=== PATIENT | female | born 1935 | race Caucasian/White ===

== ENCOUNTER 2016-09-17 21:18 | Observation (INO) ==
[2016-09-17 21:52] LABS: Basophils % 0.5 %; Eosinophils # 0.1 K/mcL (0.0-0.6); Hemoglobin 12.7 g/dL (11.5-15.4); Immature Granulocytes % 0.7 % (0-4); Lymphocytes # 0.8 K/mcL (0.6-4.6); Lymphocytes % 14.5 %; Mean Corpuscular HGB Conc 32.6 g/dL (31.6-35.5); Mean Corpuscular Hemoglobin 33.8 pg (28.0-33.3); Mean Corpuscular Volume 103.7 fL (83.0-100.0); Mean Platelet Volume 8.2 fL (9.4-12.4); Monocytes # 0.6 K/mcL (0.0-1.3); Monocytes % 10.2 %; Platelet Count 222 K/mcL (140-400); Red Blood Count 3.76 M/mcL (3.82-4.97); Red Cell Distribution Width 13.6 % (11.5-14.5); Segmented Neutrophils % 72.1 %
[2016-09-17 21:58] LABS: Prothrombin Time 10.9 Seconds (9.4-12.1)
--- NOTE | 2016-09-17 21:58 | Emergency Department Note ---
Disposition Clinical Impression: UTI (urinary tract infection) Qualifiers: Urinary tract infection type: site unspecified Hematuria presence: without hematuria Qualified Code(s): N39.0 - Urinary tract infection, site not specified Falls Qualifiers: Encounter type: initial encounter Qualified Code(s): W19.XXXA - Unspecified fall, initial encounter Disposition: Home, Self-Care Condition: Good Referrals: Unassigned,Provider [Non-Partnered Physician] - Time of Disposition: 23:15 Syncope HPI - General Stated Complaint: fall, head lac Time Seen by Provider: 09/17/16 21:27 Source: patient, EMS Mode of arrival: EMS Limitations: altered mental status, age Nursing Notes Reviewed: Yes Vital Signs Reviewed: Yes - History of Present Illness HPI Narrative: 81-year-old female presents by EMS after a fall at home. She is a vague historian and is oriented only to person and place. Her history changes on repeat questioning and is unreliable. She notes that she has fallen a few times today perhaps 3 or 4 and notes that on the final episode she was in her bedroom and they will backwards striking her TV and apparently losing consciousness. She initially stated that she did not lose consciousness, but on repeat questioning she stated that she did not lose consciousness, but not until after she struck the TV. She denies any lightheadedness, shortness breath , chest pain, recent illness or other injury. She denies any blood thinner use. She is not able to verbalize her past medical history. She does note chronic neck and back pain which she states is at baseline. She denies any abdominal pain or extremity pain or injury. She denies any intoxicating substances or sedating medications tonight. - Related Data Allergies Allergy/AdvReac Type Severity Reaction Status Date / Time Unable to Assess Allergy Unverified 09/17/16 21:30 All systems ED: reviewed and negative except as stated. Past Medical History - Past Medical History Source: unable to obtain (Due to patient's altered mental status.) Physical Exam - Head- laceration to posterior scalp not visualized due to dried blood. No active bleeding. - Eye Eye exam: Present: normal appearance, PERRL, EOMI - ENT ENT exam: normal exam, normal oropharynx, mucous membranes moist - Neck Normal inspection. No stepoff/deformity. Diffuse tenderness in the right paraspinal muscles. - Chest Chest inspection: Present: normal inspection, symmetric chest wall rise - Respiratory Respiratory exam: Clear to auscultation bilaterally without wheezes rales or rhonchi Cardiovascular Cardiovascular exam: Present: regular rate, normal rhythm, normal heart sounds - Abdominal Exam Abdominal exam: Present: soft, Non-Tender. Absent: tenderness, distention, guarding, rebound, rigidity - Extremities Exam Extremities exam: Present: normal inspection, full ROM - Back Exam No stepoff or deformity. Diffuse mild tenderness which patient states is at baseline. - Neurological Exam Neurological exam: Present: alert, oriented to person and place only, CN II-XII intact. No focal motor/sensory deficit. - Psychiatric Psychiatric exam: Present: normal affect, normal mood - Skin Skin exam: Present: warm, dry, intact, normal color Course - Reevaluation(s) Reevaluation #1: Patient noted to have urinary tract infection on laboratory analysis. She was given Rocephin. She will be admitted to the hospitalist for urinary tract infection with multiple falls. Scalp laceration was repaired by myself without complications. 3 cm vertical laceration to midposterior scalp was irrigated with normal saline. Wound was explored adequately. It was repaired with 5 darrin. Pt tolerated the procedure well without complications. Bleeding was controlled. Pt given instructions for follow up and return precautions. Time: 23:14 Reevaluation #2: Accepted by Dr. Torrez. Time: 23:32 Vital Signs Temperature 98.1 F 09/17/16 21:20 Pulse Rate 89 09/17/16 21:20 Respiratory Rate 18 09/17/16 21:20 Blood Pressure 168/90 09/17/16 21:20 O2 Sat by Pulse Oximetry 95 09/17/16 21:20 Temperature 98.1 F 09/17/16 21:20 Pulse Rate 83 09/17/16 22:39 Respiratory Rate 16 09/17/16 22:39 Blood Pressure 133/99 09/17/16 22:39 O2 Sat by Pulse Oximetry 95 09/17/16 22:39 Oxygen Delivery Oxygen Delivery Room Air Syncope - Lab Data Result diagrams: 09/17/16 21:37 09/17/16 21:37 Lab Results 09/17/16 09/17/16 09/17/16 Range/Units 21:37 21:37 21:37 WBC 5.6 (4.3-11.1) K/mcL RBC 3.76 L (3.82-4.97) M/mcL Hgb 12.7 (11.5-15.4) g/dL Hct 39.0 (35.3-44.9) % MCV 103.7 H (83.0-100.0) fL MCH 33.8 H (28.0-33.3) pg MCHC 32.6 (31.6-35.5) g/dL RDW 13.6 (11.5-14.5) % Plt Count 222 (140-400) K/mcL MPV 8.2 L (9.4-12.4) fL Immature Gran % 0.7 (0-4) % Seg Neutrophils % 72.1 % Lymphocytes % 14.5 % Monocytes % 10.2 % Eosinophils % 2.0 % Basophils % 0.5 % Neutrophils # 4.0 (1.6-8.9) K/mcL Lymphocytes # 0.8 (0.6-4.6) K/mcL Monocytes # 0.6 (0.0-1.3) K/mcL Eosinophils # 0.1 (0.0-0.6) K/mcL Basophils # 0.0 (0.0-0.2) K/mcL PT 10.9 (9.4-12.1) Seconds INR 1.0 APTT 29.1 (26.0-36.0) Seconds Sodium 140 (136-145) mEq/L Potassium 3.7 (3.5-4.5) mEq/L Chloride 107 (98-109) mEq/L Carbon Dioxide 26 (19-29) mEq/L BUN 12 (7-20) mg/dL Creatinine 0.71 (0.57-1.11) mg/dL Est GFR ( Amer) > 60 (> 60) Est GFR (Non-Af Amer) > 60 (> 60) BUN/Creatinine Ratio 17 (6-26) Glucose 92 (70-99) mg/dL Calculated Osmolality 289 (280-300) Calcium 8.8 (8.6-10.8) mg/dL Creatine Kinase 386 H (29-168) Units/L Troponin I (0-0.03) ng/mL Urine Color (Yellow) Urine Clarity (Clear) Urine pH (5.0-8.0) pH Units Ur Specific [place] (1.010-1.025) Urine Protein (Neg-Trace) mg/dL Urine Glucose (UA) (Normal) mg/dL Urine Ketones (Negative) mg/dL Urine Blood (Negative) Urine Nitrite (Negative) Urine Bilirubin (Negative) Urine Urobilinogen (Normal) mg/dL Ur Leukocyte Esterase (Negative) Urine Microscopic RBC (0-3) per hpf Urine Microscopic WBC (0-3) per hpf Ur Squamous Epith Cells (None-Few) per lpf Ur Transition Epith Cell (None-Few) per hpf Urine Bacteria (None-Few) per hpf Hyaline Casts (None-Few) per lpf Urine Mucus (Few) Ur Culture Indicated? (NO) 09/17/16 09/17/16 Range/Units 21:37 22:24 WBC (4.3-11.1) K/mcL RBC (3.82-4.97) M/mcL Hgb (11.5-15.4) g/dL Hct (35.3-44.9) % MCV (83.0-100.0) fL MCH (28.0-33.3) pg MCHC (31.6-35.5) g/dL RDW (11.5-14.5) % Plt Count (140-400) K/mcL MPV (9.4-12.4) fL Immature Gran % (0-4) % Seg Neutrophils % % Lymphocytes % % Monocytes % % Eosinophils % % Basophils % % Neutrophils # (1.6-8.9) K/mcL Lymphocytes # (0.6-4.6) K/mcL Monocytes # (0.0-1.3) K/mcL Eosinophils # (0.0-0.6) K/mcL Basophils # (0.0-0.2) K/mcL PT (9.4-12.1) Seconds INR APTT (26.0-36.0) Seconds Sodium (136-145) mEq/L Potassium (3.5-4.5) mEq/L Chloride (98-109) mEq/L Carbon Dioxide (19-29) mEq/L BUN (7-20) mg/dL Creatinine (0.57-1.11) mg/dL Est GFR ( Amer) (> 60) Est GFR (Non-Af Amer) (> 60) BUN/Creatinine Ratio (6-26) Glucose (70-99) mg/dL Calculated Osmolality (280-300) Calcium (8.6-10.8) mg/dL Creatine Kinase (29-168) Units/L Troponin I 0.00 (0-0.03) ng/mL Urine Color Yellow (Yellow) Urine Clarity Cloudy A (Clear) Urine pH 5.0 (5.0-8.0) pH Units Ur Specific [place] 1.028 H (1.010-1.025) Urine Protein Negative (Neg-Trace) mg/dL Urine Glucose (UA) Normal (Normal) mg/dL Urine Ketones Negative (Negative) mg/dL Urine Blood Trace H (Negative) Urine Nitrite Positive A (Negative) Urine Bilirubin Negative (Negative) Urine Urobilinogen Normal (Normal) mg/dL Ur Leukocyte Esterase Moderate H (Negative) Urine Microscopic RBC 3-5 H (0-3) per hpf Urine Microscopic WBC 30-50 H (0-3) per hpf Ur Squamous Epith Cells Few (None-Few) per lpf Ur Transition Epith Cell Few (None-Few) per hpf Urine Bacteria Many H (None-Few) per hpf Hyaline Casts None Seen (None-Few) per lpf Urine Mucus Few (Few) Ur Culture Indicated? YES A (NO) - EKG Data EKG attestation: Yes I reviewed and interpreted this EKG. EKG results narrative: Normal sinus rhythm at 85 with left axis deviation. No ST elevation or depression. There is just diffuse nonspecific T-wave flattening. No significant change when compared with 12/03/2013. Attestation Statement - Attestation Attestation: I examined this patient and my medical decision-making was reviewed with the EXPEDITER/PA/Advanced Practice Nurse/Resident Physician. I agree with the documented findings, disposition and treatment plan as described except to the extent set forth below.
[2016-09-17 22:01] LABS: Activated Partial Thrombo Time 29.1 Seconds (26.0-36.0)
[2016-09-17] MEDS ORDERED: 0.9 % Sodium Chloride 500 ML IVC ONE (22:13)
[2016-09-17] MEDS ORDERED: Tdap (Boostrix) Vaccine 0.5 ML SYRINGE IM ONE (22:25)
[2016-09-17 22:47] LABS: Bilirubin,Urine Negative (Negative); Blood,Urine Trace (Negative); Clarity,Urine Cloudy (Clear); Color,Urine Yellow (Yellow); Glucose,Urine (UA) Normal (Normal); Ketones,Urine Negative (Negative); Leukocyte Esterase,Urine Moderate (Negative); Nitrite,Urine Positive (Negative); Protein,Urine Negative (Neg-Trace); Specific Gravity,Urine 1.028 (1.010-1.025); Urobilinogen,Urine Normal (Normal)
[2016-09-17 22:50] LABS: Creatine Kinase 386 Units/L (29-168)
[2016-09-17 22:52] LABS: BUN/Creatinine Ratio 17 (6-26); Blood Urea Nitrogen 12 mg/dL (7-20); Calcium 8.8 mg/dL (8.6-10.8); Carbon Dioxide 26 mEq/L (19-29); Chloride 107 mEq/L (98-109); Glucose 92 mg/dL (70-99); Osmolality,Calculated 289 (280-300); Potassium 3.7 mEq/L (3.5-4.5); Sodium 140 mEq/L (136-145); eGFR For African Americans > 60 (> 60); eGFR For Non-African Americans > 60 (> 60)
[2016-09-17 22:55] LABS: Squamous Epithelial Cell,Urine Few per lpf (None-Few)
[2016-09-17 22:56] LABS: Bacteria,Urine Many per hpf (None-Few); Transitional Epi Cells,Urine Few per hpf (None-Few); WBC,Urine 30-50 per hpf (0-3)
[2016-09-17 22:57] LABS: Hyaline Casts,Urine None Seen per lpf (None-Few); Mucus,Urine Few (Few)
[2016-09-17] MEDS ORDERED: 0.9 % Sodium Chloride 1,000 ML IVC SCH (23:45)
[2016-09-18] MEDS ORDERED: *HR* Morphine 2 MG/ML SYRINGE IVP ONE (02:48)
[2016-09-18] MEDS ORDERED: Naloxone 0.4 MG/ML INJ IVP PRN (03:25)
[2016-09-18] MEDS ORDERED: *HR* HYDROcodone/Acet 5/325 mg TABLET PO PRN (03:30)
[2016-09-18] MEDS ORDERED: Acetaminophen 325 MG TABLET PO PRN (03:30)
[2016-09-18] MEDS ORDERED: *HR* Morphine 2 MG/ML SYRINGE IVP PRN (03:30)
--- NOTE | 2016-09-18 03:38 | Internal Med History&Physical ---
Date of Encounter: 09/18/16 Time of Encounter: 03:36 Assessment and Plan (1) Falls Current visit: Yes Status: Acute Falls / Syncope: Possibly related to urinary tract infection/Orthostatic hypotension versus mechanical fall. Will treat urinary tract infection. Check orthostatic vitals. Obtain echocardiogram. Pt has limited movement at the right hip - will obtain X-ray, to exclude fracture / severe arthritis. PT/OT consult Qualifiers: Encounter type: initial encounter Qualified Code(s): W19.XXXA - Unspecified fall, initial encounter (2) UTI (urinary tract infection) Current visit: Yes Status: Acute Empirically started on ceftriaxone. Urine cultures pending. Titrate antibiotics based on the cultures. Qualifiers: Urinary tract infection type: site unspecified Hematuria presence: without hematuria Qualified Code(s): N39.0 - Urinary tract infection, site not specified (3) Rhabdomyolysis Current visit: Yes Status: Acute CK is elevated. Treat with IV fluids. Monitor CK levels Qualifiers: Rhabdomyolysis type: traumatic Encounter type: initial encounter Qualified Code(s): T79.6XXA - Traumatic ischemia of muscle, initial encounter (4) Macrocytosis Current visit: Yes Status: Acute Will check folate, vitamin B12 and TSH levels (5) Scalp laceration Current visit: Yes Status: Acute s/p repair / stapling in the ER. pain relief and supportive care. CT head is negative acute intracranial process. Qualifiers: Encounter type: initial encounter Qualified Code(s): S01.01XA - Laceration without foreign body of scalp, initial encounter (6) DVT prophylaxis Current visit: Yes Status: Acute SCDs Internal Medicine - H&P: HPI Chief complaint: Falls Admitted From: Emergency Dept Plans for Post Hospital Care: Home History of present illness: Ms. Ivan is a 81 year old female with past h/o migraines and prior falls. She presents to emergency department with history of fall at home. She reports that she lost balance and fell on her side striking the TV. She denies feeling dizzy , lightheaded or loosing consciousness. She could not get up by herself but could manage to reach the phone. She reports bleeding from the head, with headache and neck pain. She denies chest pain, palpitations, abdominal pain, dysuria, hematuria, or bowel problems, nausea, vomiting, fever, chills. She was evaluated in the emergency department and was noted to have abnormal urinalysis/urinary tract infection. She was given ceftriaxone and admitted to the hospitalist service for further workup and management. Past Med Surg Social Fam HX - Past Medical History Medical history: migraine, osteoporosis - Social History Smoking Status: Never smoker Alcohol use: none Drug use: none - Family History Mother Living Status: Age at : 66 Cause of : cardiac Father Living Status: Age at : 79 Internal Medicine - H&P: Meds Allergies Unable to Assess Allergy (Unverified 09/17/16 21:30) Pt is unable to remember what she is allergic to that caused her to stop breathing & go to [facility]. All Systems PM: A 10-system review of systems was performed and is negative for pertinent findings except as documented above in the HPI. - Constitutional Vitals: Temp Pulse Resp BP Pulse Ox 97.9 F 93 15 147/78 92 09/18/16 03:24 09/18/16 03:24 09/18/16 03:24 09/18/16 03:24 09/18/16 03:24 Exam: General: In mild distress at the time of my evaluation HEENT: Oral mucosa is moist. No conjunctival palor or scleral icterus. There is laceration with darirn on the occipital area Neck: No obvious neck swellings Lungs: Clear to auscultation Cardiac: Regular rate and rhythm. No significant murmurs Abdomen: Soft, non tender. Bowel sounds present Genitourinary: No drummond catheter Neurological: Alert and oriented. No gross localizing deficits Psych: Not aggressive or agitated Extremities: There is limitation of movements in the left lower extremity. No significant tenderness in the right knee or hip. No significant leg swelling Skin: No generalized rash Internal Med - H&P Results - Labs CBC & Chem 7: 09/17/16 21:37 09/17/16 21:37 - EKG Data -: EKG Interpreted by Myself EKG shows normal: sinus rhythm - EKG Data Prior EKG available for review: yes When compared to previous EKG: there are significant changes EKG comments: eviated questions in lead 1, aVL, V3 to V6. Poor R-wave progression in the anterior chest leads. 09/18/16 03:46 - Impressions ITS Impressions Cervical Spine CT 09/17/16 21:28 IMPRESSION: No acute abnormality of the cervical spine. D/ / Ray Fall MD / Ray Fall MD Interpreting Provider: Ray Fall MD Chest X-Ray 09/17/16 21:28 IMPRESSION: Negative portable chest. D/ / Iron Flores MD / Iron Flores MD Interpreting Provider: Iron Flores MD Head CT 09/17/16 21:28 IMPRESSION: 1. No acute intracranial abnormality. 2. Cerebral and cerebellar parenchymal volume loss with chronic microvascular white matter ischemic disease. D/ / 09/17/2016 22:27:31 Agustín Acevedo MD / laura Interpreting Provider: Agustín Acevedo MD
[2016-09-18] MEDS: Acetaminophen/Butalbital/CaffeineTABLET PO PRN ×3 (05:17→15:35)
[2016-09-18 05:33] LABS: Magnesium 1.7 mg/dL (1.6-2.6)
[2016-09-18 05:54] LABS: Thyroid Stimulating Hormone 1.356 mcIU/mL (0.350-4.840)
[2016-09-18 06:06] LABS: Folate 7.2 ng/mL (7.0-31.4)
[2016-09-18] MEDS: 0.9 % Sodium Chloride 1,000 ML IVC SCH ×2 (08:08→19:50)
--- NOTE | 2016-09-18 11:52 | Event Note ---
Date of Encounter: 09/18/16 Time of Encounter: 09:30 Patient seen and examined. On examination, patient resting supine in bed conversing with her [id number]. Patient complains of neck and back pain. She also complains of dysuria and suprapubic abdominal pain. She states she is eating well. Her pain appears uncontrolled and she is unable to move or roll over in bed without severe pain. Scalp laceration noted to her occiput, 5 darrin are intact and wound is well approximated. No drainage. CT of cervical spine negative. Chest x-ray negative. Head CT negative. Pelvic x- ray showed a possible abnormality in the right hip however dedicated right hip films were negative. CK elevation noted and is trending up, IV fluids added, will trend. Concern for possible rhabdo. Urinary tract infection noted, continue ceftriaxone and await culture. Nursing reports patient is intermittently confused, during my interaction with her, she was alert and oriented 3. patient services technician is also on board. OT and PT who recommended inpatient/swing bed however the patient vehemently refuses to leave her home. We will observe overnight, await urine culture, and trend her CK levels. Macrocytosis noted- TSH and folate normal B12 slightly low- will initiate supplementation. ITS Impressions Cervical Spine CT 09/17/16 21:28 IMPRESSION: No acute abnormality of the cervical spine. D/ / Ray Fall MD / Ray Fall MD Interpreting Provider: Ray Fall MD Chest X-Ray 09/17/16 21:28 IMPRESSION: Negative portable chest. D/ / Iron Flores MD / Iron Flores MD Interpreting Provider: Iron Flores MD Head CT 09/17/16 21:28 IMPRESSION: 1. No acute intracranial abnormality. 2. Cerebral and cerebellar parenchymal volume loss with chronic microvascular white matter ischemic disease. D/ / 09/17/2016 22:27:31 Agustín Acevedo MD / laura Interpreting Provider: Agustín Acevedo MD Pelvis X-Ray 09/18/16 03:27 IMPRESSION: Questionable nondisplaced right greater trochanter fracture. Dedicated hip radiographs may provide additional diagnostic information. D/ / Iron Flores MD / Iron Flores MD Interpreting Provider: Iron Flores MD Hip X-Ray 09/18/16 05:34 IMPRESSION: No definite acute fracture. D/ / Iron Flores MD / Iron Flores MD Interpreting Provider: Iron Flores MD Echocardiogram impressions: Normal LV systolic function, LVEF 65%. Mild left ventricular diastolic dysfunction. Normal right ventricular size and function. Mild aortic regurgitation. No evidence of pulmonary hypertension.
[2016-09-18] MEDS: Cyanocobalamin (B-12) 1,000 MCG TABLET PO SCH (12:29)
[2016-09-18] MEDS ORDERED: *HR* OxyCODONE Immed Rel 5 MG TABLET PO PRN (15:15)
[2016-09-18] MEDS ORDERED: Ketorolac 15 MG/ML VIAL IVP ONE (15:17)
[2016-09-18] MEDS ORDERED: Prochlorperazine 10 MG/2 ML VIAL IVP ONE (15:18)
--- NOTE | 2016-09-18 15:51 | Electrocardiograph Report ---
[address] [place], [place] [address] Test Date: 2016-09-17 Pat Name: Doreen Ivan Department: 102 Room: 3B21 Gender: F Outcome Analyst: Rosa Maria : 1935 Requested By: Ministerio Suggs Order Number: [id number] Reading MD: Michele Finley MD Measurements Intervals [place] Rate: 85 P: 16 [place]: 146 QRS: -21 QRSD: 93 T: 148 QT: 350 QTc: 392 Interpretive Statements SINUS RHYTHM BORDERLINE LEFT AXIS DEVIATION VOLTAGE CRITERIA FOR LVH LATERAL ISCHEMIA Electronically Signed On 09-18-2016 15:50:38 EDT by Michele Finley MD
[2016-09-19 03:51] LABS: Basophils % 0.4 %; Eosinophils # 0.1 K/mcL (0.0-0.6); Eosinophils % 2.6 %; Hematocrit 36.6 % (35.3-44.9); Hemoglobin 11.8 g/dL (11.5-15.4); Immature Granulocytes % 0.2 % (0-4); Lymphocytes # 0.8 K/mcL (0.6-4.6); Lymphocytes % 17.2 %; Mean Corpuscular HGB Conc 32.2 g/dL (31.6-35.5); Mean Corpuscular Hemoglobin 33.4 pg (28.0-33.3); Mean Corpuscular Volume 103.7 fL (83.0-100.0); Mean Platelet Volume 8.8 fL (9.4-12.4); Monocytes # 0.5 K/mcL (0.0-1.3); Monocytes % 10.9 %; Neutrophils # 3.2 K/mcL (1.6-8.9); Platelet Count 220 K/mcL (140-400); Red Blood Count 3.53 M/mcL (3.82-4.97); Red Cell Distribution Width 13.5 % (11.5-14.5); Segmented Neutrophils % 68.7 %
[2016-09-19 07:16] VITALS: BP 157/74
[2016-09-19] MEDS: Cyanocobalamin (B-12) 1,000 MCG TABLET PO SCH (09:07)
--- NOTE | 2016-09-19 10:42 | Discharge Summary ---
Date of Encounter: 09/19/16 Time of Encounter: 09:00 - Discharge Diagnosis (1) Falls Priority: Primary Status: Acute Comments: Likely multifactorial including mild dementia over the past several years that has an worsening. Also patient had urinary tract infection. She declined inpatient rehabilitation, sending home with home health Qualifiers: Encounter type: initial encounter Qualified Code(s): W19.XXXA - Unspecified fall, initial encounter (2) UTI (urinary tract infection) Priority: Primary Status: Acute Comments: Preliminary culture gram-negative rods. Treated with ceftriaxone while admitted , will send home on ciprofloxacin. We will call her tomorrow if urine sensitivities require change of antibiotics Qualifiers: Urinary tract infection type: site unspecified Hematuria presence: without hematuria Qualified Code(s): N39.0 - Urinary tract infection, site not specified (3) Dementia Priority: Secondary Status: Chronic Comments: At times during this admission, patient would become confused however for the most part she was alert and oriented 3. Multiple factors could be contributing including her rhabdo, urinary tract infection. Family states she has been getting increasingly more confused over the past several years. During my interactions with her during her 2 day admission, she was oriented 3 and able to make her own decisions. She refused inpatient placement, sending home with home health. (4) Weakness of right lower extremity Priority: Secondary Status: Chronic Comments: No new weaknesses. No upper extremity weaknesses or facial asymmetry (5) DVT prophylaxis Priority: Primary Status: Acute Comments: Observation patient (6) Rhabdomyolysis Priority: Primary Status: Acute Comments: Improved and CK trended down prior to discharge. Recommend follow-up outpatient Qualifiers: Rhabdomyolysis type: traumatic Encounter type: initial encounter Qualified Code(s): T79.6XXA - Traumatic ischemia of muscle, initial encounter (7) Macrocytosis Priority: Primary Status: Acute Comments: Stable, followed by outpatient (8) Scalp laceration Priority: Primary Status: Acute Comments: Well approximated, [address], follow up outpatient for staple removal Qualifiers: Encounter type: initial encounter Qualified Code(s): S01.01XA - Laceration without foreign body of scalp, initial encounter - Discharge Medications Prescriptions: Ciprofloxacin HCl [Cipro] 500 mg PO BID #14 tablet Cyanocobalamin (B-12) [Vitamin B12] 1,000 mcg PO DAILY #30 tablet Home Medications: Acetaminophen/Butalbital/Caffe [Fioricet] 1 tab PO Q6HR PRN 09/18/16 [History] Escitalopram [Lexapro] 20 mg PO DAILY 09/18/16 [History] LORazepam [Ativan] 1 mg PO TID 09/18/16 [History] Omeprazole [PriLOSEC] 40 mg PO DAILY 09/18/16 [History] Ciprofloxacin HCl [Cipro] 500 mg PO BID #14 tablet 09/19/16 [Rx] Cyanocobalamin (B-12) [Vitamin B12] 1,000 mcg PO DAILY #30 tablet 09/19/16 [Rx] Allergies/Adverse Reactions: Allergies Novacaine Allergy (Uncoded 09/18/16 10:34) Difficulty Breathing Procedures/tests Complete & Pending: Procedures Performed prior 72 hours Category Date Time Status EV echocardiogram Routine Y 09/18/16 03:34 Completed Date of admission: 09/17/16 23:40 Primary care physician: El Guerrero Jr, MD Consults: 09/18/16 00:51 Consult to Exhibits Curator [CONS] Routine Reason for SW Consult: lives home alone, frequent falls 09/18/16 03:27 PT [Consult to Physical Therapy] [CONS] Routine Comment: Evaluate, develop and implement POC Reason for Consult: recurrent falls 09/18/16 03:31 Consult to Occupational Therapy [CONS] Routine Comment: Evaluate, develop and implement POC Reason for Consult: Recurrent falls Discharging clinician: Jovana Brewster Anticipated date of discharge: 09/19/16 (refused ECF; home with HH) - Patient Status Disposition: Home Health Service Condition: Good Functional capacity at discharge: uses cane/walker Overall status at discharge: patient is progressing back to baseline - Discharge Instructions Follow Up With: El Guerrero Jr, MD [Primary Care Provider] - 09/25/16 10:00 am Forms: ED Satisfaction Letter Additional Instructions: Follow-up with primary care provider as scheduled - Diet and Activity Activity: ambulate only with your walker, as per physical therapy, increase activity as tolerated Diet: regular diet Hospital course: Ms. Ivan is a 81 year old female with past medical history of migraines and prior falls. Patient presented to the emergency department chief complaint fall at home. Patient states she lost her balance and fell on her side and struck the TV. She denies dizziness, lightheadedness, or loss of consciousness. Patient was not able to get up by herself but was able to reach the phone. Patient also had a scalp laceration to the occipital part. Patient also complained of headache and neck pain. She denied chest pain, palpitations , diarrhea, dysuria, bowel abnormalities, nausea or vomiting. Workup in the emergency department notable for urinary tract infection. CT of cervical spine unremarkable. Chest x-ray negative. Head CT negative for acute processes. Pelvic x-ray with possible hip fracture however dedicated hip x-rays were negative. Patient was admitted to the hospitalist service for further evaluation and management. Patient was admitted and observed over the course of 2 days and was treated with ceftriaxone. Preliminary culture report at time of discharge was gram-negative rods with sensitivities pending. She was sent home on ciprofloxacin and she will be called tomorrow if antibiotics need changed. She is aware that she would not receive a call if antibiotic is appropriate. Patient also had signs of rhabdo during this admission and prior to discharge after receiving IV fluids, her CK decreased and her generalized body aches have lessened. She was seen and evaluated by occupational and physical therapy both of her recommended inpatient/swing bed. Patient vehemently declined to go inpatient. At times during this admission, she would become confused but for the most part, patient was alert and oriented 3. Her family was concerned about her going home as she lives with herself. Social work was brought on board and there were several very lengthy discussions regarding her disposition. Ultimate decision was to send her home with home health services with additional services to be added on per the family. During my interactions with her over the course of 2 days, she was alert and oriented 3 and capable of making her own decisions. Echocardiogram unremarkable with ejection fraction of 65% and mild diastolic dysfunction. Patient euvolemic on examination on day of discharge. Her scalp laceration was well approximated with [address], follow up outpatient for staple removal. Also of note , patient had weakness noted to her right lower extremity which she states is chronic. She had no new focal neurological weakness is present during this admission. Macrocytosis was also noted on her blood work so TSH, folate, B12 all checked with B12 being slightly low and she was started on supplementation. She was discharged home with home health services in stable condition with close outpatient follow-up recommended. ITS Impressions Cervical Spine CT 09/17/16 21:28 IMPRESSION: No acute abnormality of the cervical spine. D/ / Ray Fall MD / Ray Fall MD Interpreting Provider: Ray Fall MD Chest X-Ray 09/17/16 21:28 IMPRESSION: Negative portable chest. D/ / Iron Flores MD / Iron Flores MD Interpreting Provider: Iron Flores MD Head CT 09/17/16 21:28 IMPRESSION: 1. No acute intracranial abnormality. 2. Cerebral and cerebellar parenchymal volume loss with chronic microvascular white matter ischemic disease. D/ / 09/17/2016 22:27:31 Agustín Acevedo MD / laura Interpreting Provider: Agustín Acevedo MD Pelvis X-Ray 09/18/16 03:27 IMPRESSION: Questionable nondisplaced right greater trochanter fracture. Dedicated hip radiographs may provide additional diagnostic information. D/ / Iron Flores MD / Iron Flores MD Interpreting Provider: Iron Flores MD Hip X-Ray 09/18/16 05:34 IMPRESSION: No definite acute fracture. D/ / Iron Flores MD / Iron Flores MD Interpreting Provider: Iron Flores MD Echocardiogram impressions: Normal LV systolic function, LVEF 65%. Mild left ventricular diastolic dysfunction. Normal right ventricular size and function. Mild aortic regurgitation. No evidence of pulmonary hypertension. - Time Spent with Patient Total time spent providing and/or coordinating discharge services: - Constitutional Vitals: Temp Pulse Resp BP Pulse Ox 98.0 F 77 14 157/74 93 09/19/16 07:15 09/19/16 07:15 09/19/16 07:15 09/19/16 07:15 09/19/16 07:15 General appearance: Present: A&O X 3, pleasant, no acute distress, answers questions appropriately - Head Head exam: Present: normocephalic. Absent: atraumatic (scalp lac- well approximated; [address]) - Eye Eye exam: Present: EOMI, PERRL, conjuntiva pink, sclera anicteric Pupils: Present: PERRL - Neck Neck exam general surgery: Present: supple, trachea midline. Absent: lymphadenopathy - Respiratory Respiratory exam: Present: CTAB. Absent: accessory muscle use, rales, respiratory distress, rhonchi, wheezes - Cardiovascular Cardiovascular exam: Present: RRR, +S1, +S2. Absent: diastolic murmur, gallop, rubs, systolic murmur - GI/Abdominal GI/Abdominal exam: Present: normal bowel sounds, soft, no peritoneal signs. Absent: distended, tenderness - Extremities Exam Extremities exam: Present: warm, radial pulses palpable and symetrical. Absent : calf tenderness, cyanotic, pedal edema - Neurological Exam Neurological exam: Present: alert, CN II-XII intact, oriented X3, no focal deficits, strengths equal and symetr throughout (protective signal repairer helper strength- RLE weak- chronic). Absent: pronater drift, facial droop, speech deficit - Skin Skin exam: Present: dry, intact, normal color, warm
--- NOTE | 2016-09-19 10:54 | Physician Discharge Referral ---
Home Health/Hosp Referral Info Transfer to: Home Health Attending Provider: Rufino Brewster CNP Provider in Charge Post Discharge: PCP - Diagnosis (1) Falls Priority: Primary Status: Acute (2) UTI (urinary tract infection) Priority: Primary Status: Acute (3) Dementia Priority: Secondary Status: Chronic (4) Weakness of right lower extremity Priority: Secondary Status: Chronic (5) DVT prophylaxis Priority: Primary Status: Acute (6) Rhabdomyolysis Priority: Primary Status: Acute (7) Macrocytosis Priority: Primary Status: Acute (8) Scalp laceration Priority: Primary Status: Acute - Respiratory Orders Smoking Cessation: Smoking cessation has been advised. For more information, call the [place] Tobacco Quit Line at 9-628-UNLG-NOW. - Diet/Nutrition Diet/Nutrition Orders: Regular - Activity Activity Orders: Ambulate (per PT), Walker - Services Needed Following services are medically necessary services: Nursing, Home Health Aide, Physical Therapy, Occupational Therapy - Transfer Medications Prescriptions: Ciprofloxacin HCl [Cipro] 500 mg PO BID #14 tablet Cyanocobalamin (B-12) [Vitamin B12] 1,000 mcg PO DAILY #30 tablet Home Medications: Acetaminophen/Butalbital/Caffe [Fioricet] 1 tab PO Q6HR PRN 09/18/16 [History] Escitalopram [Lexapro] 20 mg PO DAILY 09/18/16 [History] LORazepam [Ativan] 1 mg PO TID 09/18/16 [History] Omeprazole [PriLOSEC] 40 mg PO DAILY 09/18/16 [History] Ciprofloxacin HCl [Cipro] 500 mg PO BID #14 tablet 09/19/16 [Rx] Cyanocobalamin (B-12) [Vitamin B12] 1,000 mcg PO DAILY #30 tablet 09/19/16 [Rx] Allergies/Adverse Reactions: Allergies Novacaine Allergy (Uncoded 09/18/16 10:34) Difficulty Breathing Certification: Further, I certify that my clinical findings support that this patient is homebound (i.e. absences from home require considerable and taxing effort and are for medical reasons or mandaeism services or infrequently or short duration when for other reasons) because: Homebound Reason: Patient requires assistance of a person or device to safely leave home, Leaving home requires considerable and taxing effort due to condition, Altered mental status requiring supervision when leaving home Attestation: My signature below is to certify that this patient is under my care and that I, or nurse practitioner, or a physician's environmental emergencies assistant working with me, has a face-to -face encounter with this patient.
== END 2016-09-19 11:13 | disposition home health service (06) ==
LOC: 3BNU 21:18 → EMEROO 21:18 → 3BNU 09-18 00:12
PROVIDERS: ADMIT Internal Medicine Sleep Medicine; ATTEND Nurse Practitioner Family

== ENCOUNTER 2017-03-15 20:28 | Inpatient (IN) ==
[2017-03-15] MEDS ORDERED: 0.9 % Sodium Chloride 1,000 ML IVC ONE (22:09)
--- NOTE | 2017-03-15 22:19 | Emergency Department Note ---
Disposition Clinical Impression: Concussion without loss of consciousness Qualifiers: Encounter type: initial encounter Qualified Code(s): S06.0X0A - Concussion without loss of consciousness, initial encounter UTI (urinary tract infection) Qualifiers: Urinary tract infection type: site unspecified Hematuria presence: without hematuria Qualified Code(s): N39.0 - Urinary tract infection, site not specified Falls Qualifiers: Encounter type: initial encounter Qualified Code(s): W19.XXXA - Unspecified fall, initial encounter Disposition: Admitted As Inpatient Condition: Fair Referrals: El Guerrero Jr, MD [Primary Care Provider] - Forms: ED Satisfaction Letter Fall HPI - General Chief Complaint: ED Fall Stated Complaint: falls Time Seen by Provider: 03/15/17 20:47 Source: patient, EMS Limitations: altered mental status Nursing Notes Reviewed: Yes Vital Signs Reviewed: Yes - History of Present Illness HPI Narrative: 81-year-old female presents to the emergency department by ambulance after she had a fall at home this morning about 10:30 AM. Son reports that they were downstairs living room and they her her fall upstairs in her bathroom. She fell forward into the bathtub knocking the glass doors all further tract. She was trapped in the bathtub. He reports they did not see any obvious injuries initially. She was not unconscious. Throughout the day son states that she has been intermittently confused and not acting her normal self. This evening they noticed an area of bruising to the left forehead. Patient normally lives alone and son is here from out of town. He reports that she has just become more confused and disoriented throughout the day and extremely weak. Unable to get around. Patient is alert but is confused and disoriented and unable to provide any significant history or review of systems. She does deny headache however I am unsure if this is reliable. She is oriented to person only. She thinks that some neighbors across the street came and helped her out of the bathtub and she does not know who they were. It was actually her son and family members. Also patient has apparent frequent falls. She has a large area of old ecchymosis to the right hip and lateral thigh and a bruise to the anterior and medial thigh on the right also. She has contusions with abrasions to the anterior aspect of both knees which are old. She has multiple bruises to the anterior chest wall of varying age but all appear to be older. Pt Subjective Complaint: fall Onset (ago): hour(s) (10) Fall From: standing Fall Witnessed: no Place Fall Occurred: home Loss of Consciousness: none Prolonged Down Time?: no Location of injury: head Associated symptoms (after fall): Reports: weakness, confusion - Related Data Home Medications Medication Instructions Recorded Confirmed Acetaminophen/Butalbital/Caffe 1 tab PO Q6HR PRN 09/18/16 09/18/16 [Fioricet] Escitalopram [Lexapro] 20 mg PO DAILY 09/18/16 09/18/16 LORazepam [Ativan] 1 mg PO TID 09/18/16 09/18/16 Omeprazole [PriLOSEC] 40 mg PO DAILY 09/18/16 09/18/16 Previous Rx's Medication Instructions Recorded Ciprofloxacin HCl [Cipro] 500 mg PO BID #14 tablet 09/19/16 Cyanocobalamin (B-12) [Vitamin B12] 1,000 mcg PO DAILY #30 tablet 09/19/16 Allergies Allergy/AdvReac Type Severity Reaction Status Date / Time Novacaine Allergy Difficulty Uncoded 09/18/16 10:34 Breathing All systems ED: reviewed and negative except as stated. Limitations: ROS unobtainable due to patients medical condition Fall PMH - Past Medical History Medical history: Reports: migraine, osteoporosis Psychiatric history: Reports: anxiety - Social History Smoking Status: Never smoker Alcohol use: Reports: none Drug use: Reports: none Physical Exam - General Limitations: no limitations General appearance: alert, in no apparent distress - Head Head exam: normocephalic, other (There is a contusion to the left forehead with ecchymosis and a mild hematoma. No laceration noted.) - Eye Eye exam: Present: normal appearance, PERRL, EOMI. Absent: scleral icterus, conjunctival injection - ENT ENT exam: normal oropharynx, mucous membranes dry, TM's normal bilaterally, normal external ear exam - Neck Neck exam: Present: normal inspection, full ROM, trachea midline. Absent: tenderness, meningismus, lymphadenopathy - Chest Chest inspection: Present: normal inspection, symmetric chest wall rise. Absent : tenderness - Respiratory Respiratory exam: Present: normal lung sounds bilaterally. Absent: respiratory distress, wheezes - Cardiovascular Cardiovascular exam: Present: regular rate, normal rhythm, normal heart sounds - Abdominal Exam Abdominal exam: Present: soft, Non-Tender, normal bowel sounds - Extremities Exam Extremities exam: Present: full ROM, tenderness (Some tenderness over the right knee. Contusions with crusted abrasions over the proximal anterior [place] bilaterally, worse on the left. Old ecchymosis with tenderness over the right lateral thigh.). Absent: pedal edema - Neurological Exam Neurological exam: Present: alert. Absent: oriented X3 (Patient oriented to person only.), motor sensory deficit - Psychiatric Psychiatric exam: Present: flat affect - Skin Skin exam: Present: warm, dry. Absent: cyanosis, diaphoresis Course Course Narrative: Elderly female who lives alone presents with frequent falls. She had a fall earlier today with an injury to the left forehead. Since the fall today she has had increasing confusion and weakness. We will obtain workup including CT of the head and neck. Anticipate admission as I do not feel patient is stable to return home with her current mental status. - Reevaluation(s) Reevaluation #1: Test results discussed with patient's son. No significant physical abnormalities. She may have a mild UTI but no head bleed. I will consult the hospitalist regarding admission for the frequent falls and altered mental status. Patient is oriented to person only and family who is with her at present is leaving to return to their homes and no did not feel can return to her home and live alone at present. Time: 00:15 - Consultations Consultation #1: The hospitalist, Dr. Sullivan, was consulted and accepted the admission of the patient. Time: 00:20 Vital Signs Temperature 0 F L 03/15/17 20:31 Pulse Rate 72 03/15/17 20:31 Respiratory Rate 16 03/15/17 20:31 Blood Pressure 149/93 03/15/17 20:31 O2 Sat by Pulse Oximetry 94 03/15/17 20:31 Temperature 0 F L 03/15/17 20:31 Pulse Rate 76 03/16/17 00:12 Respiratory Rate 14 03/16/17 00:12 Blood Pressure 146/83 03/16/17 00:12 O2 Sat by Pulse Oximetry 93 03/16/17 00:12 Oxygen Delivery Oxygen Delivery Room Air Fall - Medical Records Medical records reviewed: Yes I reviewed the patient's medical records. - Lab Data Lab results reviewed: Yes I reviewed the patient's lab results. Result diagrams: 03/15/17 22:21 03/15/17 22:21 Lab Results 03/15/17 03/15/17 03/15/17 Range/Units 22:21 22:21 23:05 WBC 7.2 (4.3-11.1) K/mcL RBC 3.26 L (3.82-4.97) M/mcL Hgb 10.6 L (11.5-15.4) g/dL Hct 33.6 L (35.3-44.9) % MCV 103.1 H (83.0-100.0) fL MCH 32.5 (28.0-33.3) pg MCHC 31.5 L (31.6-35.5) g/dL RDW 13.0 (11.5-14.5) % Plt Count 252 (140-400) K/mcL MPV 8.5 L (9.4-12.4) fL Immature Gran % 0.4 (0-4) % Seg Neutrophils % 72.2 % Lymphocytes % 11.9 % Monocytes % 9.8 % Eosinophils % 5.1 % Basophils % 0.6 % Neutrophils # 5.2 (1.6-8.9) K/mcL Lymphocytes # 0.9 (0.6-4.6) K/mcL Monocytes # 0.7 (0.0-1.3) K/mcL Eosinophils # 0.4 (0.0-0.6) K/mcL Basophils # 0.0 (0.0-0.2) K/mcL Sodium 143 (136-145) mEq/L Potassium 3.7 (3.5-4.5) mEq/L Chloride 110 H (98-109) mEq/L Carbon Dioxide 23 (19-29) mEq/L BUN 17 (7-20) mg/dL Creatinine 0.80 (0.57-1.11) mg/dL Est GFR ( Amer) > 60 (> 60) Est GFR (Non-Af Amer) > 60 (> 60) BUN/Creatinine Ratio 21 (6-26) Glucose 94 (70-99) mg/dL Calculated Osmolality 297 (280-300) Calcium 8.7 (8.6-10.8) mg/dL Total Bilirubin 0.3 (0.2-1.2) mg/dL AST 19 (5-34) Units/L ALT 22 (0-55) Units/L Alkaline Phosphatase 98 (38-126) Units/L Serum Total Protein 6.5 (6.0-8.3) g/dL Albumin 3.0 L (3.5-5.0) g/dL Globulin 3.5 (2.4-3.5) g/dL Albumin/Globulin Ratio 0.9 L (1.1-2.2) Urine Color Yellow (Yellow) Urine Clarity Cloudy A (Clear) Urine pH 6.0 (5.0-8.0) pH Units Ur Specific [place] 1.025 (1.010-1.025) Urine Protein Negative (Neg-Trace) mg/dL Urine Glucose (UA) Normal (Normal) mg/dL Urine Ketones Negative (Negative) mg/dL Urine Blood Negative (Negative) Urine Nitrite Negative (Negative) Urine Bilirubin Negative (Negative) Urine Urobilinogen Normal (Normal) mg/dL Ur Leukocyte Esterase Moderate H (Negative) Urine Microscopic RBC 5-15 H (0-3) per hpf Urine Microscopic WBC 30-50 H (0-3) per hpf Ur Squamous Epith Cells Many H (None-Few) per lpf Ur Transition Epith Cell Few (None-Few) per hpf Ur Renal Epithelial Cell Few (None-Few) per hpf Urine Bacteria Few (None-Few) per hpf Hyaline Casts Few (None-Few) per lpf Ur Culture Indicated? YES A (NO) - Radiology Data Radiology results reviewed: Yes I reviewed the patient's radiology results. Cervical Spine CT 03/15/17 22:09 IMPRESSION: 1. No acute osseous abnormality of the cervical spine. 2. Unchanged chronic mild T3 and moderate T4 vertebral body anterior compression deformities consistent with sequela of remote injury. D/ / Petar Bell MD / Petar Bell MD Interpreting Provider: Petar Bell MD Head CT 03/15/17 22:09 IMPRESSION: No acute intracranial abnormality. Small soft tissue hematoma seen overlying the left frontal bone D/ / Gabino Conte MD / Gabino Conte MD Interpreting Provider: Gabino Conte MD Chest X-Ray 03/15/17 22:12 IMPRESSION: Stable cardiomegaly. Clear lungs. D/ / Vlad Kaufman MD / Vlad Kaufman MD Interpreting Provider: Vlad Kaufman MD - EKG Data EKG attestation: Yes I reviewed and interpreted this EKG. EKG results narrative: EKG shows a normal sinus rhythm with a rate of 71. Normal intervals. Voltage criteria for LVH. Possible septal TN, probably old. No acute ischemic changes or ectopy. EKG shows normal: sinus rhythm Rate: normal Rhythm: NSR
[2017-03-15 22:30] LABS: Basophils % 0.6 %; Eosinophils # 0.4 K/mcL (0.0-0.6); Eosinophils % 5.1 %; Hematocrit 33.6 % (35.3-44.9); Hemoglobin 10.6 g/dL (11.5-15.4); Immature Granulocytes % 0.4 % (0-4); Lymphocytes # 0.9 K/mcL (0.6-4.6); Lymphocytes % 11.9 %; Mean Corpuscular HGB Conc 31.5 g/dL (31.6-35.5); Mean Corpuscular Hemoglobin 32.5 pg (28.0-33.3); Mean Corpuscular Volume 103.1 fL (83.0-100.0); Mean Platelet Volume 8.5 fL (9.4-12.4); Monocytes # 0.7 K/mcL (0.0-1.3); Monocytes % 9.8 %; Neutrophils # 5.2 K/mcL (1.6-8.9); Platelet Count 252 K/mcL (140-400); Red Blood Count 3.26 M/mcL (3.82-4.97); Segmented Neutrophils % 72.2 %
[2017-03-15 22:47] LABS: Alanine Aminotransferase 22 Units/L (0-55); Albumin/Globulin Ratio 0.9 (1.1-2.2); Alkaline Phosphatase 98 Units/L (38-126); Aspartate Amino Transferase 19 Units/L (5-34); BUN/Creatinine Ratio 21 (6-26); Bilirubin,Total 0.3 mg/dL (0.2-1.2); Blood Urea Nitrogen 17 mg/dL (7-20); Calcium 8.7 mg/dL (8.6-10.8); Carbon Dioxide 23 mEq/L (19-29); Chloride 110 mEq/L (98-109); Globulin 3.5 g/dL (2.4-3.5); Glucose 94 mg/dL (70-99); Osmolality,Calculated 297 (280-300); Potassium 3.7 mEq/L (3.5-4.5); Sodium 143 mEq/L (136-145); Total Protein 6.5 g/dL (6.0-8.3); eGFR For African Americans > 60 (> 60); eGFR For Non-African Americans > 60 (> 60)
[2017-03-15 23:14] LABS: Bilirubin,Urine Negative (Negative); Blood,Urine Negative (Negative); Clarity,Urine Cloudy (Clear); Color,Urine Yellow (Yellow); Glucose,Urine (UA) Normal (Normal); Ketones,Urine Negative (Negative); Leukocyte Esterase,Urine Moderate (Negative); Nitrite,Urine Negative (Negative); Protein,Urine Negative (Neg-Trace); Specific Gravity,Urine 1.025 (1.010-1.025); Urobilinogen,Urine Normal (Normal)
[2017-03-15 23:16] LABS: Hyaline Casts,Urine Few per lpf (None-Few); Squamous Epithelial Cell,Urine Many per lpf (None-Few); WBC,Urine 30-50 per hpf (0-3)
[2017-03-15 23:26] LABS: Transitional Epi Cells,Urine Few per hpf (None-Few)
[2017-03-15 23:27] LABS: Bacteria,Urine Few per hpf (None-Few); Renal Epithelial Cells,Urine Few per hpf (None-Few)
[2017-03-16] MEDS ORDERED: Naloxone 0.4 MG/ML INJ IVP PRN (01:19)
[2017-03-16] MEDS ORDERED: Ondansetron 4 MG/2 ML VIAL IVP PRN (01:19)
--- NOTE | 2017-03-16 01:25 | Internal Med History&Physical ---
Date of Encounter: 03/16/17 Time of Encounter: 01:10 Assessment and Plan (1) Multiple falls Current visit: Yes Status: Acute Multiple falls - with contusion and abrasions - likely secondary to chronic benzodiazepine use and possibly due to UTI Continue IV fluids, fall precautions, empiric IV Rocephin CT brain - no acute intracranial abnormality, small soft tissue hematoma over left frontal bone Chest x-ray - cardiomegaly, clear lungs Cervical spine CT - multilevel degenerative disc disease, no acute process EKG - normal sinus rhythm with no acute ST-T changes Troponin - pending Urine drug screen - pending PT/OT consult, group social worker consult Cardiac telemetry, lives in a.m., monitor closely (2) Contusion Current visit: Yes Status: Acute Contusion/hematoma over the left side of forehead secondary to fall Abrasions over both knees in various stages of healing Wound care to both knees Qualifiers: Encounter type: initial encounter Contusion area: head Contusion of head detail: scalp Qualified Code(s): S00.03XA - Contusion of scalp, initial encounter (3) UTI (urinary tract infection) Current visit: Yes Status: Acute Acute cystitis, UTI, present on admission - likely secondary to gram-negative bacilli Urine culture - pending UA - moderate leukocyte esterase Continue empiric IV Rocephin Qualifiers: Urinary tract infection type: site unspecified Hematuria presence: without hematuria Qualified Code(s): N39.0 - Urinary tract infection, site not specified (4) Dementia Current visit: Yes Status: Chronic Probable dementia, mild to moderate - without behavioral disturbances Qualifiers: Dementia type: unspecified type Dementia behavioral disturbance: without behavioral disturbance Qualified Code(s): F03.90 - Unspecified dementia without behavioral disturbance (5) DVT prophylaxis Current visit: Yes Status: Acute SCDs, avoid anticoagulants for now due to hematoma/contusion over her forehead and abrasions over both knees Internal Medicine - H&P: HPI Chief complaint: Multiple falls Admitted From: Emergency Dept Plans for Post Hospital Care: Home History of present illness: Ms. Ivan is a 81 year old female with past medical history of migraines, probable dementia, history of falls and osteoporosis. Patient presents to the ED after a fall and injury to the left side of her head. Examined in the room. Patient is is drowsy but easily arousable. She verbalizes well and able to answer questions appropriately. Not in any distress. Son is at bedside and he provides history as well. Son states that he found the patient in the bathtub after she fell face first. Patient seems to have injured the left side of forehead. Patient's only complaint is dizziness. She denies chest pain or shortness of breath. Denies palpitations or cough or headache. She also complains of pain in both knees, worse on the right side. She states she has had multiple falls over the past several weeks. She has injured her knees as well. Patient does have abrasions over both knees from falls. She denies abdominal pain or vomiting or diarrhea. No fever. Patient is unsure as to how she fell today in the bathtub. No loss of consciousness reported. No seizure-like activity. Son states that patient does not use her walker regularly. Patient was also initially more confused, but seems to be back to baseline at this time. No other associated symptoms. No other acute complaints at this time. Initial workup in the ED is negative. CT of the brain does not show any acute intracranial abnormality. CT of the cervical spine does not show any acute fracture. Labs are fairly within normal limits. Patient does have a UTI. Patient is being admitted for multiple falls. This is probably due to her Ativan use, which her son states she takes regularly. Patient and her son have been explained about her condition and plan Detail. Understood and agreed. No unanswered questions. CODE STATUS full code. Past Med Surg Social Fam HX - Past Medical History Medical history: migraine, osteoporosis Psychiatric history: anxiety - Past Surgical History Surgical History: other, vascular surgery (Right arm surgery, hemorrhoidectomy) - Social History Smoking Status: Never smoker Smokeless Tobacco Status: No Alcohol use: none Drug use: none - Family History Mother Living Status: Father Living Status: Internal Medicine - H&P: Meds Acetaminophen/Butalbital/Caffe [Fioricet] 1 tab PO Q6HR PRN 09/18/16 [History] Escitalopram [Lexapro] 20 mg PO DAILY 09/18/16 [History] LORazepam [Ativan] 1 mg PO TID 09/18/16 [History] Omeprazole [PriLOSEC] 40 mg PO DAILY 09/18/16 [History] Ciprofloxacin HCl [Cipro] 500 mg PO BID #14 tablet 09/19/16 [Rx] Cyanocobalamin (B-12) [Vitamin B12] 1,000 mcg PO DAILY #30 tablet 09/19/16 [Rx] 3 Allergy/AdvReac Type Severity Reaction Status Date / Time Novacaine Allergy Difficulty Uncoded 09/18/16 10:34 Breathing All Systems PM: A 10-system review of systems was performed and is negative for pertinent findings except as documented above in the HPI. - Constitutional Constitutional: fatigue, weakness, no fever(s) - EENT Eyes: no blurry vision, no loss of vision - Cardiovascular Cardiovascular ROS IM: lightheadedness, no chest pain, no diaphoresis, no dyspnea, no dyspnea on exertion, no edema, no orthopnea, no palpitations, no syncope - Respiratory Respiratory: no cough, no dyspnea, no dyspnea on exertion, no wheezing, no chest congestion - Gastrointestinal Gastrointestinal: no abdominal pain, no bloating, no cramping, no diarrhea, no loose stools, no nausea, no vomiting - Genitourinary Genitourinary: no dysuria - Neurological Neurological ROS: confusion, dizziness, no abnormal gait, no abnormal speech, no convulsions, no focal weakness, no loss of vision, no numbness, no tingling, no weakness - Constitutional Vitals: Temp Pulse Resp BP Pulse Ox 0 F L 76 16 146/80 93 03/15/17 20:31 03/16/17 00:12 03/16/17 01:07 03/16/17 01:07 03/16/17 00:12 General appearance: Present: cooperative, A&O X 3, pleasant, no acute distress, answers questions appropriately Exam: Generalized weakness. Patient is drowsy but easily arousable. Able to verbalize and follow commands. Able to answer questions appropriately. She is oriented to time, place and person. - Head Head exam: Present: atraumatic - Eye Eye exam: Present: EOMI - ENT ENT exam: Present: mucous membranes dry - Respiratory Respiratory exam: Present: CTAB. Absent: rales, respiratory distress, rhonchi, wheezes, tachypnea - Cardiovascular Cardiovascular exam: Present: RRR, +S1, +S2 - GI/Abdominal GI/Abdominal exam: Present: soft. Absent: distended, firm, guarding, tenderness - Extremities Exam Extremities exam: Present: radial pulses palpable and symmetrical. Absent: calf tenderness, cyanotic, pedal edema Additional comments: Bilateral abrasions of both knees, worse on the left side. - Neurological Exam Neurological exam: Present: CN II-XII intact, oriented X3, no focal deficits. Absent: facial droop, speech deficit Additional comments: Patient is drowsy but easily arousable. Able to follow verbal commands and verbalizes well. No focal neurological deficits. Internal Med - H&P Results - Labs CBC & Chem 7: 03/16/17 02:32 03/15/17 22:21
[2017-03-16] MEDS ORDERED: 0.9 % Sodium Chloride 1,000 ML IVC SCH (01:30)
[2017-03-16] MEDS: cefTRIAXone 1,000 MG in Water for inj. (sterile) 10 ML IVP SCH (02:36)
[2017-03-16 02:53] LABS: Basophils % 0.5 %; Eosinophils # 0.3 K/mcL (0.0-0.6); Eosinophils % 5.6 %; Hematocrit 31.8 % (35.3-44.9); Hemoglobin 10.3 g/dL (11.5-15.4); Immature Granulocytes % 0.3 % (0-4); Immature Platelets 1.3 % (1.1-6.1); Lymphocytes # 1.1 K/mcL (0.6-4.6); Lymphocytes % 18.9 %; Mean Corpuscular HGB Conc 32.4 g/dL (31.6-35.5); Mean Corpuscular Hemoglobin 33.7 pg (28.0-33.3); Mean Corpuscular Volume 103.9 fL (83.0-100.0); Mean Platelet Volume 8.5 fL (9.4-12.4); Monocytes # 0.6 K/mcL (0.0-1.3); Monocytes % 10.1 %; Neutrophils # 3.7 K/mcL (1.6-8.9); Platelet Count 279 K/mcL (140-400); Red Blood Count 3.06 M/mcL (3.82-4.97); Red Cell Distribution Width 13.1 % (11.5-14.5); Segmented Neutrophils % 64.6 %
[2017-03-16 02:58] LABS: INR 1.1; Prothrombin Time 12.3 Seconds (9.4-12.1)
[2017-03-16 03:07] LABS: BUN/Creatinine Ratio 18 (6-26); Blood Urea Nitrogen 13 mg/dL (7-20); Calcium 8.1 mg/dL (8.6-10.8); Carbon Dioxide 23 mEq/L (19-29); Chloride 111 mEq/L (98-109); Glucose 87 mg/dL (70-99); Osmolality,Calculated 293 (280-300); Potassium 3.5 mEq/L (3.5-4.5); Sodium 142 mEq/L (136-145); eGFR For African Americans > 60 (> 60); eGFR For Non-African Americans > 60 (> 60)
[2017-03-16 08:59] LABS: Amphetamine Screen,Urine Negative ng/mL (Cutoff=1000); Benzodiazepines Screen,Urine Negative ng/mL (Cutoff=200); Cannabinoid Screen,Urine Negative ng/mL (Cutoff = 50); Cocaine Screen,Urine Negative ng/mL (Cutoff= 300); Opiate Screen,Urine Negative ng/mL (Cutoff=300); Phencyclidine Screen,Urine Negative ng/mL (Cutoff=25)
[2017-03-16 09:03] LABS: Barbiturate Screen,Urine Positive ng/mL (Cutoff=200)
[2017-03-16] MEDS: Acetaminophen/Butalbital/CaffeineTABLET PO PRN ×2 (15:08→23:43)
[2017-03-17] MEDS: cefTRIAXone 1,000 MG in Water for inj. (sterile) 10 ML IVP SCH (03:08)
[2017-03-17] MEDS: Acetaminophen 325 MG TABLET PO PRN ×2 (03:15→21:18)
[2017-03-17 09:54] LABS: Basophils # 0.1 K/mcL (0.0-0.2); Eosinophils # 0.2 K/mcL (0.0-0.6); Eosinophils % 4.6 %; Hematocrit 36.2 % (35.3-44.9); Hemoglobin 11.8 g/dL (11.5-15.4); Immature Granulocytes % 1.1 % (0-4); Lymphocytes # 1.2 K/mcL (0.6-4.6); Lymphocytes % 21.9 %; Mean Corpuscular HGB Conc 32.6 g/dL (31.6-35.5); Mean Corpuscular Hemoglobin 32.8 pg (28.0-33.3); Mean Corpuscular Volume 100.6 fL (83.0-100.0); Mean Platelet Volume 8.5 fL (9.4-12.4); Monocytes # 0.5 K/mcL (0.0-1.3); Monocytes % 10.3 %; Neutrophils # 3.2 K/mcL (1.6-8.9); Platelet Count 298 K/mcL (140-400); Red Cell Distribution Width 12.8 % (11.5-14.5); Segmented Neutrophils % 61.1 %
[2017-03-17 09:57] LABS: BUN/Creatinine Ratio 18 (6-26); Blood Urea Nitrogen 12 mg/dL (7-20); Calcium 8.7 mg/dL (8.6-10.8); Carbon Dioxide 22 mEq/L (19-29); Chloride 107 mEq/L (98-109); Glucose 160 mg/dL (70-99); Osmolality,Calculated 291 (280-300); Potassium 3.2 mEq/L (3.5-4.5); Sodium 139 mEq/L (136-145); eGFR For African Americans > 60 (> 60); eGFR For Non-African Americans > 60 (> 60)
--- NOTE | 2017-03-17 10:55 | Electrocardiograph Report ---
[place] [id number] Test Date: 2017-03-15 Pat Name: Doreen Ivan Department: 104 Room: [id number] Gender: F Animal Care Technician: : [id number] Requested By: Elvin Rodriguez Order Number: [id number] Reading MD: Michele Finley MD Measurements Intervals [place] Rate: 71 P: 32 DE: 148 QRS: -22 QRSD: 96 T: 81 QT: 383 QTc: 405 Interpretive Statements SINUS RHYTHM VOLTAGE CRITERIA FOR LVH Poor R wave progression Electronically Signed On 03-17-2017 10:54:01 EST by Michele Finley MD
[2017-03-17] MEDS: Acetaminophen/Butalbital/CaffeineTABLET PO PRN (16:14)
--- NOTE | 2017-03-17 18:05 | Internal Med Progress Note ---
Date of Encounter: 03/17/17 Time of Encounter: 11:00 - Assessment and plan (1) UTI (urinary tract infection) Current Visit: Yes Status: Acute Assessment and plan: -Gram stain positive for gram-negative rods -IV ceftriaxone was initiated Qualifiers: Urinary tract infection type: acute cystitis Hematuria presence: without hematuria Qualified Code(s): N30.00 - Acute cystitis without hematuria (2) Multiple falls Current Visit: Yes Status: Acute Assessment and plan: -History of multiple falls -PT/OT consulted (3) Contusion Current Visit: Yes Status: Acute Assessment and plan: -Left forehead contusion secondary to fall. -Patient is alert and oriented [address] of the head with no acute findings. Qualifiers: Encounter type: initial encounter Contusion area: head Contusion of head detail: scalp Qualified Code(s): S00.03XA - Contusion of scalp, initial encounter (4) Dementia Current Visit: Yes Status: Chronic Assessment and plan: Stable Qualifiers: Dementia type: unspecified type Dementia behavioral disturbance: without behavioral disturbance Qualified Code(s): F03.90 - Unspecified dementia without behavioral disturbance - Subjective Interval history: No acute issues overnight - Constitutional Vitals: Temp Pulse Resp BP Pulse Ox 98.0 F 94 15 161/93 94 03/17/17 15:21 03/17/17 15:21 03/17/17 15:21 03/17/17 15:21 03/17/17 15:21 General appearance: Present: cooperative, A&O X 3, pleasant, no acute distress, answers questions appropriately - Respiratory Respiratory exam: Present: CTAB. Absent: accessory muscle use, rales, rhonchi, wheezes - Cardiovascular Cardiovascular exam: Present: RRR, +S1, +S2. Absent: diastolic murmur, gallop, rubs, systolic murmur Internal Medicine: Result - Labs CBC & Chem 7: 03/17/17 09:28 03/17/17 09:28 Labs: Short CBC 03/17/17 Range/Units 09:28 WBC 5.2 (4.3-11.1) K/mcL Hgb 11.8 D (11.5-15.4) g/dL Hct 36.2 (35.3-44.9) % Plt Count 298 (140-400) K/mcL Neutrophils # 3.2 (1.6-8.9) K/mcL BMP 03/17/17 09:28 Sodium 139 Potassium 3.2 L Chloride 107 Carbon Dioxide 22 BUN 12 Creatinine 0.65 Glucose 160 H Calcium 8.7 - ABG Interpretation ABG results: PT/INR, D-dimer PT 12.3 Seconds (9.4-12.1) H 03/16/17 02:32 - VTE Documentation of Mechanical Device: Intermittent pneumatic compression device Consult Discharge Plan - Plan Referrals: El Guerrero Jr, MD [Primary Care Provider] -
[2017-03-18] MEDS: Acetaminophen/Butalbital/CaffeineTABLET PO PRN ×2 (01:57→14:03)
[2017-03-18] MEDS: cefTRIAXone 1,000 MG in Water for inj. (sterile) 10 ML IVP SCH (01:58)
[2017-03-18] MEDS: Acetaminophen 325 MG TABLET PO PRN (04:40)
[2017-03-18] MEDS ORDERED: *HR* LORazepam 1 MG TABLET PO PRN (08:41)
[2017-03-18] MEDS ORDERED: Cyanocobalamin (B-12) 1,000 MCG TABLET PO SCH (09:00)
--- NOTE | 2017-03-18 11:59 | Discharge Summary ---
Date of Encounter: 03/18/17 Time of Encounter: 09:25 - Discharge Diagnosis (1) Multiple falls Priority: Primary Status: Acute (2) Contusion Priority: Secondary Status: Acute Qualifiers: Encounter type: initial encounter Contusion area: head Contusion of head detail: scalp Qualified Code(s): S00.03XA - Contusion of scalp, initial encounter (3) UTI (urinary tract infection) Priority: Secondary Status: Acute Qualifiers: Urinary tract infection type: acute cystitis Hematuria presence: without hematuria Qualified Code(s): N30.00 - Acute cystitis without hematuria (4) Dementia Priority: Secondary Status: Chronic Qualifiers: Dementia type: unspecified type Dementia behavioral disturbance: without behavioral disturbance Qualified Code(s): F03.90 - Unspecified dementia without behavioral disturbance (5) DVT prophylaxis Priority: Secondary Status: Acute - Discharge Medications Prescriptions: Amlodipine Besylate 2.5 mg PO DAILY #30 tablet Ciprofloxacin [Cipro] 500 mg PO BID #8 tablet Home Medications: Acetaminophen/Butalbital/Caffe [Fioricet] 1 tab PO Q6HR PRN 09/18/16 [History] Escitalopram [Lexapro] 20 mg PO DAILY 09/18/16 [History] Omeprazole [PriLOSEC] 40 mg PO DAILY 09/18/16 [History] Cyanocobalamin (B-12) [Vitamin B12] 1,000 mcg PO DAILY #30 tablet 09/19/16 [Rx] Amlodipine Besylate 2.5 mg PO DAILY #30 tablet 03/18/17 [Rx] Ciprofloxacin [Cipro] 500 mg PO BID #8 tablet 03/18/17 [Rx] Allergies/Adverse Reactions: 3 Allergy/AdvReac Type Severity Reaction Status Date / Time Novacaine Allergy Difficulty Uncoded 09/18/16 10:34 Breathing Date of admission: 03/16/17 01:19 Primary care physician: El Guerrero Jr, MD Discharging clinician: Dior Maguire Anticipated date of discharge: 03/18/17 - Patient Status Disposition: Home Health Service Condition: Fair Functional capacity at discharge: uses cane/walker Overall status at discharge: patient is progressing back to baseline - Discharge Instructions Instructions: Ciprofloxacin (By mouth), Amlodipine (By mouth), Urinary Tract Infection in Women (DC), Fall Prevention (DC) Follow Up With: El Guerrero Jr, MD [Primary Care Provider] - 03/25/17 1:00 pm () - Diet and Activity Activity: as per physical therapy Diet: low fat, low cholesterol, low salt diet Hospital course: Ms. Ivan is a 81 year old female patient with a history of dementia, migraine and osteoporosis who was hospitalized here after sustaining multiple falls at home in the recent weeks. She was very drowsy when she was initially seen in the ER. This is believed to be due to her use of Ativan. She was also diagnosed with acute urinary tract infection. She was monitored closely in the hospital and treated for UTI. Her Ativan was held and she has since been doing better. She was evaluated by physical therapy and recommended placement to skilled rehabilitation. However patient is adamant about going home. We discussed this further with her son who is her DPOA and she wants to follow his mother's wishes at this time. We will arrange for home health with physical therapy and occupational therapy and home health aide for the patient. We will continue to hold Ativan at the time of discharge and patient needs to follow up with her primary care provider to see she can be started on a different medication to help with anxiety. Her urine culture was positive for Escherichia coli and patient will complete an antibiotic course with ciprofloxacin. - Time Spent with Patient Total time spent providing and/or coordinating discharge services: Greater than 30 minutes (35 min) - Constitutional Vitals: Temp Pulse Resp BP Pulse Ox 97.7 F 91 15 156/92 96 03/18/17 11:35 03/18/17 11:35 03/18/17 04:53 03/18/17 11:35 03/18/17 04:53 General appearance: Present: cooperative, A&O X 2, pleasant, no acute distress, answers questions appropriately - Respiratory Respiratory exam: Present: CTAB. Absent: accessory muscle use, rales, rhonchi, wheezes - Cardiovascular Cardiovascular exam: Present: RRR, +S1, +S2. Absent: diastolic murmur, gallop, rubs, systolic murmur - GI/Abdominal GI/Abdominal exam: Present: normal bowel sounds, soft, no peritoneal signs. Absent: distended, tenderness - Extremities Exam Extremities exam: Present: warm, radial pulses palpable and symmetrical. Absent : calf tenderness, cyanotic, pedal edema - Neurological Exam Neurological exam: Present: alert, no focal deficits. Absent: facial droop, speech deficit - VTE Documentation of Mechanical Device: Intermittent pneumatic compression device
--- NOTE | 2017-03-18 12:00 | Physician Discharge Referral ---
Home Health/Hosp Referral Info Transfer to: Home Health Provider in Charge Post Discharge: PCP - Diagnosis (1) Multiple falls Priority: Primary Status: Acute (2) Contusion Priority: Secondary Status: Acute (3) UTI (urinary tract infection) Priority: Secondary Status: Acute (4) Dementia Priority: Secondary Status: Chronic (5) DVT prophylaxis Priority: Secondary Status: Acute - Respiratory Orders Smoking Cessation: Smoking cessation has been advised. For more information, call the [place] Tobacco Quit Line at 0-757-PJXE-NOW. - Diet/Nutrition Diet/Nutrition Orders: No Added Salt (KAREEN), Cardiac - Activity Activity Orders: Walker - Services Needed Following services are medically necessary services: Nursing, Home Health Aide, Physical Therapy, Occupational Therapy, Med Social Work - Transfer Medications Prescriptions: Amlodipine Besylate 2.5 mg PO DAILY #30 tablet Ciprofloxacin [Cipro] 500 mg PO BID #8 tablet Home Medications: Acetaminophen/Butalbital/Caffe [Fioricet] 1 tab PO Q6HR PRN 09/18/16 [History] Escitalopram [Lexapro] 20 mg PO DAILY 09/18/16 [History] LORazepam [Ativan] 1 mg PO TID PRN 09/18/16 [History] Omeprazole [PriLOSEC] 40 mg PO DAILY 09/18/16 [History] Cyanocobalamin (B-12) [Vitamin B12] 1,000 mcg PO DAILY #30 tablet 09/19/16 [Rx] Amlodipine Besylate 2.5 mg PO DAILY #30 tablet 03/18/17 [Rx] Ciprofloxacin [Cipro] 500 mg PO BID #8 tablet 03/18/17 [Rx] Allergies/Adverse Reactions: 3 Allergy/AdvReac Type Severity Reaction Status Date / Time Allergy Difficulty Uncoded 09/18/16 10:34 Breathing Certification: Further, I certify that my clinical findings support that this patient is homebound (i.e. absences from home require considerable and taxing effort and are for medical reasons or worship services or infrequently or short duration when for other reasons) because: Homebound Reason: Patient requires assistance of a person or device to safely leave home Attestation: My signature below is to certify that this patient is under my care and that I, or nurse practitioner, or a physician's foundation assistant working with me, has a face-to -face encounter with this patient.
[2017-03-18] MEDS ORDERED: FLUARIX QUAD 2017-18 36MOS UP/PF 0.5 ML SYRINGE IM ONE (14:01)
[2017-03-18 16:09] VITALS: BP 181/96
== END 2017-03-18 17:30 | disposition home health service (06) | DRG 690 ==
LOC: EMEROO 20:28 → 2NENU 20:28 → SUATTDRO 03-16 01:19
PROVIDERS: ADMIT Internal Medicine; ATTEND Internal Medicine